=== PATIENT | female | born 2000 | race Caucasian/White ===

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

== ENCOUNTER → 2024-07-09 | Outpatient (CLI) | payer SELFPAY | END | disposition home or self-care (01) | PROVIDERS: Referring Provider Nurse Practitioner Family; Visit Provider Nurse Practitioner Family | DX: R30.0 Dysuria (principal) | CPT/HCPCS: 87086; 87088 ==

== ENCOUNTER → 2025-05-29 | Outpatient (CLI) | payer SELFPAY ==
--- OUTSIDE RECORDS SUMMARY | 2025-05-29 13:43 | XMS RPT_ITS | CCD ---
Author Organization [facility] Care Team Providers Care Cis Coordinator Name Role Phone Roof Toy GUZMAN Attending Unavailable Roof Toy GUZMAN Referring Unavailable Roof Toy GUZMAN Attending Unavailable Problems Problem Classification Problem Date Documented Da te Episodic/Chronic Genitourinary symptoms and ill-defined conditions (1 source) Dysuria; Translations: [Dysuria] Onset: 07-25-2024 Episodic Results Test Name Value Interpretation Reference Range Facil ity Urine Cultureon 07-11-2024 URC Mixed Gram Positive Organisms [place] Count 25,000-50,000 MIXC Mixed contaminants. Submit a new specimen if indicated. Normal [facility] Comment on above: Performed By: #### M 100.2200 #### [facility] [address] [place], [address] Office Visit Reporton 2024 Office Visit Report [facility] [address] [place] [address] OFFICE VISIT Date of Service: 07/07/24 MR#: [id number] Acct: [id number] Patient: CANDY GONZALEZ Rep #: [id number] : 2000 Provider: AVTAR tijerina Age/Sex: 24/F Location: [facility] Status: Signed Intake Vital Signs 12/11/20 09:55 07/07/24 09:56 Height 5 ft 9.5 in 5 ft 9.5 in BP 122/78 H Blood Pressure Location Lt brachial Position Sitting Respiration 12 Pulse 88 Pulse Source NIBP Temp 98.2 F Temp Source Oral Pulse Oximetry (%) 97 Oxygen Delivery Method room air Intake Visit Reasons: UTI Chief Complaint: sore throat Allergies No Known Allergies Allergy (Verified 07/07/24 13:40) Medications ???Medication ???Instructions ???Recorded ???Confirmed ???Type ciprofloxacin HCl 500 mg tablet 500 mg PO Q12H 7 days #14 tabs 06/3007/07/24 Rx phenazopyridine 100 mg tablet 100 mg PO TID PRN pain #7 tabs 06/3007/07/24 Rx (Pyridium) PFSH Social History (Updated 12/11/20 @ 09:57 by [place]) Smoking Status: Current every day smoker tobacco type: cigarettes alcohol intake: current alcohol intake frequency: a few times a month Alcohol type: beer, wine, hard liquor and other HPI HPI Chief Complaint: sore throat Details: CANDY GONZALEZ, is a 24 F who presents to the office today for uti symptoms, burning with urination, back pain, frequency x4 days. ROS Const Constitutional: No body ache, chills, fatigue, fever(s) (no fever greater than 99.9 F), malaise, night sweats or other (rigors) Resp Respiratory: No shortness of breath Cardio Cardiology: No chest pain at rest or chest pain with exertion Gastro GI: No abdominal pain Genitourinary-Femal e: No burning urination, painful urination, urinary frequency, urinary urgency, blood in urine, suprapubic fullness or side pain Endo Endocrine: No fatigue Exam Const General: cooperative, healthy appearing, comfortable and no acute distress Orientation: alert, awake and oriented x3 Chest Chest palpation inspection: normal inspection of the chest Resp Effort Inspection: normal respiratory effort Auscultation: Bilateral: Clear to Auscultation Cardio Rhythm: regular rhythm Heart Sounds: S1 normal, S2 normal and no murmurs GI Inspection: normal to inspection and non-distended Auscultation: normal bowel sounds Palpation: soft and nontender General: CVA tenderness on the left Skin General: no rashes or lesions noted Results POC Urine Office , Urine Negative Last Edit by Felipa Coelho on 07/07/24 13:39 POC Urinalysis Dip (Clinic) Office Urine Color YELLOW Last Edit by Felipa Coelho on 07/07/24 13:40 Office Urine Clarity Cloudy Last Edit by Felipa Coelho on 07/07/24 13:40 Office Urine Glucose Negative Last Edit by Felipa Coelho on 07/07/24 13:40 Office Urine Ketones Negative Last Edit by Felipa Coelho on 07/07/24 13:40 Off Ur Spec [place] 1.005 Last Edit by Felipa Coelho on 07/07/24 13:40 Office Urine pH 5.0 Last Edit by Felipa Coehlo on 07/07/24 13:40 Office Urine Bilirubin Negative Last Edit by Felipa Coelho on 07/07/24 13:40 Office Urine Urobilinogen Negative Last Edit by Felipa Coelho on 07/07/24 13:40 Office Urine Blood Moderate Last Edit by Felipa Coelho on 07/07/24 13:40 Office Urine Blood Hemolyzed Non-Hemolyzed Last Edit by Felipa Coelho on 07/07/24 13:40 Office Urine Protein Positive Last Edit by Felipa Coelho on 07/07/24 13:40 Office Urine Nitrate Negative Last Edit by Felipa Coelho on 07/07/24 13:40 Off Ur Leukocytes Positive Last Edit by Felipa Coelho on 07/07/24 13:40 Coding Level of Care Code Off vis,est,level 3 Diagnoses Pyelonephritis N12 Assessment and Plan Assessment and Plan (1) Pyelonephritis: Status: Acute Plan: She does have left CVA tenderness with vibration. She had similar symptoms and exam in December 2020 and treated with Cipro and Pyridium. She denied any associated issues with such. Will repeat such treatment today. Her urine will be sent to lab. We will contact her if treatment plan needs to change. Encouraged to get plenty of rest, drink lots of clear liquids, and use Tylenol or Ibuprofen (unless contraindicated) for fever and comfort. Patient also educated on other symptomatic management techniques. To be seen in 7-10 days if no improvement; sooner if worsening of symptoms.??? Patient advised of potential red flags and when appropriate to report to the ED.??? Patient verbalized understanding and agreement with all the above. Orders: Orders Culture, Urine Today R30.0 - Dysuria POC Urine Today R30.0 - Dysuria POC Urinalysis Dip (Clinic) Today R30.0 - Dysuria Medications: New phenazopyridine (Pyridium) 100 mg PO TID PRN 7 tabs 0RF (more content not included)... Normal [facility] .Auto Diffon 08-02-2020 Ammonia (P) [Mass/Vol] 0.50 10 3/mcL Normal 0.15-1.00 [facility] ([place]) Comment on above: Performed By: #### G FR #### [place] [address] #### ADIFF, ANEU, BMP, LIP, CBC #### [address] [address] Basophils (Bld) [#/Vol] 0.10 10 3/mcL Normal 0.00-0.19 [facility] ([place]) Comment on above: Performed By: #### G FR #### [place] [address] #### ADIFF, ANEU, BMP, LIP, CBC #### [address] [address] Basophils/100 WBC (Bld) 0.6 % Normal 0.0-2.5 [facility] ([place]) Comment on above: Performed By: #### G FR #### [place] [address] #### ADIFF, ANEU, BMP, LIP, CBC #### [address] [address] Eosinophils (Bld) [#/Vol] 0.10 10 3/mcL Normal 0.00-0.40 [facility] ([place]) Comment on above: Performed By: #### G FR #### [place] [address] #### ADIFF, ANEU, BMP, LIP, CBC #### [address] [address] Eosinophils/100 WBC (Bld) 0.6 % Normal 0.0-7.0 [facility] ([place]) Comment on above: Performed By: #### G FR #### [place] [address] #### ADIFF, ANEU, BMP, LIP, CBC #### [address] [address] Lymphocytes (Bld) [#/Vol] 1.10 10 3/mcL Normal 0.77-3.85 [facility] ([place]) Comment on above: Performed By: #### G FR #### [place] [address] #### ADIFF, ANEU, BMP, LIP, CBC #### [address] [address] Lymphocytes/100 WBC (Bld) 10.1 % Normal 10.0-50.0 [facility] ([place]) Comment on above: Performed By: #### G FR #### [place] [address] #### ADIFF, ANEU, BMP, LIP, CBC #### [address] [address] Monocytes/100 WBC (Bld) 4.7 % Normal 1.7-13.0 [facility] ([place]) Comment on above: Performed By: #### G FR #### [place] [address] #### ADIFF, ANEU, BMP, LIP, CBC #### [address] [address] Neutrophils/100 WBC (Bld) 84.0 % High 37.0-80.0 [facility] ([place]) Comment on above: Performed By: #### G FR #### [place] [address] #### ADIFF, ANEU, BMP, LIP, CBC #### [address] [address] .GFRon 08-02-2020 GFR Non- 84 ml/min/1.73sqm Normal [facility] ([place]) Comment on above: Result Comment: GFR Population mean for , Non- Americans Ages 20-29 = 116 mL/min/1.73 sq.m. Ages 30-39 = 107 mL/min/1.73 sq.m. Ages 40-49 = 99 mL/min/1.73 sq.m. Ages 50-59 = 93 mL/min/1.73 sq.m. Ages 60-69 = 85 mL/min/1.73 sq.m. Ages 70+ = 75 mL/min/1.73 sq.m. Chronic Kidney Disease: Less than 60 mL/min/1.73 square meters End Stage Renal Disease: Less than 15 mL/min/1.73 square meters Performed By: #### Anuja FR #### [place] [address] #### ADIFF, ANEU, BMP, LIP, CBC #### [address] [address] GFR 102 ml/min/1.73sqm Normal [facility] ([place]) Comment on above: Result Comment: GFR Population mean for , Non- Americans Ages 20-29 = 116 mL/min/1.73 sq.m. Ages 30-39 = 107 mL/min/1.73 sq.m. Ages 40-49 = 99 mL/min/1.73 sq.m. Ages 50-59 = 93 mL/min/1.73 sq.m. Ages 60-69 = 85 mL/min/1.73 sq.m. Ages 70+ = 75 mL/min/1.73 sq.m. Chronic Kidney Disease: Less than 60 mL/min/1.73 square meters End Stage Renal Disease: Less than 15 mL/min/1.73 square meters Performed By: #### Anuja FR #### [place] [address] #### ADIFF, ANEU, BMP, LIP, CBC #### [address] [address] .NEUABSon 08-02-2020 Neutrophils (Bld) [#/Vol] 9.30 10 3/mcL High 2.85-6.16 [facility] ([place]) Comment on above: Performed By: #### Anuja FR #### [place] [address] #### ADIFF, ANEU, BMP, LIP, CBC #### [address] [address] Jarvis 02-27-2021 Ethanol Level 11 mg/dL High 0-3 [facility]ly [facility] ([place]) Comment on above: Performed By: #### A LC #### [address] [address] BMPon 08-02-2020 Calcium [Mass/Vol] 9.6 mg/dL Normal 8.4-10.2 [facility] ([place]) Comment on above: Performed By: #### G FR #### [place] [address] #### ADIFF, ANEU, BMP, LIP, CBC #### [address] [address] Chloride [Moles/Vol] 103 mmol/L Normal 98-107 [facility] ([place]) Comment on above: Performed By: #### G FR #### [place] [address] #### ADIFF, ANEU, BMP, LIP, CBC #### [address] [address] CO2 [Moles/Vol] 26 mmol/L Normal 22-29 [facility] ([place]) Comment on above: Performed By: #### G FR #### [place] [address] #### ADIFF, ANEU, BMP, LIP, CBC #### [address] [address] Creatinine [Mass/Vol] 0.87 mg/dL Normal 0.55-1.02 [facility] ([place]) Comment on above: Performed By: #### G FR #### [place] [address] #### ADIFF, ANEU, BMP, LIP, CBC #### [address] [address] Electrolyte Balance 14.0 mEq/L Normal [facility] ([place]) Comment on above: Performed By: #### G FR #### [place] [address] #### ADIFF, ANEU, BMP, LIP, CBC #### [address] [address] Glucose [Mass/Vol] 123 mg/dL High 70-105 [facility] ([place]) Comment on above: Performed By: #### G FR #### [address] [address] #### ADIFF, ANEU, BMP, LIP, CBC #### [address] [address] Potassium [Moles/Vol] 4.1 mmol/L Normal 3.5-5.1 [facility] ([place]) Comment on above: Performed By: #### G FR #### [place] [address] #### ADIFF, ANEU, BMP, LIP, CBC #### [address] [address] Sodium [Moles/Vol] 143 mmol/L Normal 136-145 [facility] ([place]) Comment on above: Performed By: #### G FR #### [place] [address] #### ADIFF, ANEU, BMP, LIP, CBC #### [address] [address] Urea nitrogen [Mass/Vol] 11 mg/dL Normal 7-18 [facility] ([place]) Comment on above: Performed By: #### G FR #### [place] [address] #### ADIFF, ANEU, BMP, LIP, CBC #### [address] [address] Urea nitrogen/Creatinine [Mass ratio] 13 ratio Normal - [facility] ([place]) Comment on above: Performed By: #### G FR #### [address] [address] #### ADIFF, ANEU, BMP, LIP, CBC #### [address] [address] CBCon 08-02-2020 Erythrocyte distribution width (RBC) [Ratio] 12.9 % Normal 11.5-14.5 [facility] ([place]) Comment on above: Performed By: #### G FR #### [place] [address] #### ADIFF, ANEU, BMP, LIP, CBC #### [address] [address] Hematocrit (Bld) [Volume fraction] 42.0 % Normal 37.0-47.0 [facility] ([place]) Comment on above: Performed By: #### G FR #### [place] [address] #### ADIFF, ANEU, BMP, LIP, CBC #### [address] [address] Hemoglobin (Bld) [Mass/Vol] 14.2 G/dL Normal 12.0-16.0 [facility] ([place]) Comment on above: Performed By: #### G FR #### [place] [address] #### ADIFF, ANEU, BMP, LIP, CBC #### [address] [address] MCH (RBC) [Entitic mass] 33.1 pg High 27.0-31.2 [facility] ([place] Comment on above: Performed By: #### G FR #### [place] [address] #### ADIFF, ANEU, BMP, LIP, CBC #### [address] [address] MCHC (RBC) [Mass/Vol] 33.8 G/dL Normal 33.0-37.0 [facility] ([place] Comment on above: Performed By: #### G FR #### [place] [address] #### ADIFF, ANEU, BMP, LIP, CBC #### [address] [address] MCV (RBC) [Entitic vol] 97.8 fL High 80.0-94.0 [facility] ([place] Comment on above: Performed By: #### G FR #### [place] [address] #### ADIFF, ANEU, BMP, LIP, CBC #### [address] [address] Platelet mean volume (Bld) [Entitic vol] 8.7 fL Normal 7.4-10.4 [facility] ([place] Comment on above: Performed By: #### G FR #### [place] [address] #### ADIFF, ANEU, BMP, LIP, CBC #### [address] [address] Platelets (Bld) [#/Vol] 256 10 3/mcL Normal 130-400 [facility] ([place] Comment on above: Performed By: #### G FR #### [place] [address] #### ADIFF, ANEU, BMP, LIP, CBC #### [address] [address] RBC (Bld) [#/Vol] 4.29 10 6/mcL Normal 4.20-5.40 [facility] ([place]) Comment on above: Performed By: #### G FR #### [place] [address] #### ADIFF, ANEU, BMP, LIP, CBC #### [address] [address] WBC (Bld) [#/Vol] 11.00 10 3/mcL High 4.60-10.80 [facility] ([place]) Comment on above: Performed By: #### G FR #### [place] [address] #### ADIFF, ANEU, BMP, LIP, CBC #### [address] [address] LIPon 08-02-2020 Lipase Level 75 U/L Normal 73-393 [facility] ([place]) Comment on above: Performed By: #### G FR #### [facility] [address] [place] [address] #### ADIFF, ANEU, BMP, LIP, CBC #### [facility] [address] [place], [place] [address] PREGSon 08-02-2020 test (s) Negative Normal [facility] ([place]) Comment on above: Performed By: #### P REGS #### [facility] [address] [place], [place] [address] test (s) int HCG not detected. [facility] ([place]) Comment on above: Performed By: #### P REGS #### [facility] [address] [place], [place] [address] Encounters Encounter Date Encounter Type Care Provider Facility Start: 07-09-2024 End: 07-09-2024 ambulatory Toy Bee NATURAL RESOURCE TECHNICIAN Facility:[facility] Start: 07-07-2024 End: 07-07-2024 ambulatory Toy Bee NATURAL RESOURCE TECHNICIAN Facility:[facility] Payers Date Payer Category Payer Self-pay Unknown [id number] Unknown [id number] Summary Purpose Family History No Family History Records FoundNo Family History Records Found Advance Directives No Advanced Directives Records FoundNo Advanced Directives Records Found Additional Source Comments INFORMATION SOURCE (unrecogn ized section and content) DATE CREATED AUTHOR 08/03/2020 [facility] ([place]) DATE CREATED AUTHOR AUTHOR'S ORGANIZ ATION 07/26/2024 [facility] FOR RECORDS PERTAINING TO PATIENTS WHO ARE OR HAVE BEEN ENROLLED IN A CHEMICAL DEPENDENCY/SUBSTANCEABUSE PROGRAM, SOME INFORMATION MAY BE OMITTED. This clinical summary was aggregated from multiple sources. Caution should be exercised in using it in the provision of clinical care. This summary normalizes information from multiple sources, and as a consequence, information in this document may materially change the coding, format and clinical context of patient data. In addition, data may be omitted in some cases. CLINICAL DECISIONS SHOULD BE BASED ON THE PRIMARY CLINICAL RECORDS. [facility] [facility]. provides no warranty or guarantee of the accuracy or completeness of information in this document.
== END | disposition home or self-care (01) ==
LOC: LABSPEC 13:40
PROVIDERS: Visit Provider Nurse Practitioner Family
DX: R30.0 Dysuria (principal)
CPT/HCPCS: 87086; 87088